=== PATIENT | female | born 1950 | race Caucasian/White ===

== ENCOUNTER → 2017-12-16 | Day surgery (SDC) | payer OTHER ==
--- NOTE | 2017-12-16 18:21 | OP ---
DATE OF OPERATION: 12/16/2017 PREOPERATIVE DIAGNOSIS: Right breast mass 2 o'clock, 1-cm from the nipple. POSTOPERATIVE DIAGNOSIS: Right breast mass 2 o'clock, 1-cm from the nipple. PROCEDURE: Right ultrasound-guided core biopsy with U-shaped clip placement. ANESTHESIA: Local. ATTENDING SURGEON: Shi Perez MD ESTIMATED BLOOD LOSS: Minimal. COMPLICATIONS: None. PROCEDURE: Patient was made aware of the risks and benefits of the procedure and consented. She was placed in the supine position and under sterile conditions with 1% lidocaine for local anesthesia a small radha was made in the skin. Using a 10-gauge suction biopsy device, via a superolateral approach under ultrasound guidance, multiple cores were obtained and submitted to pathology. Likewise, under ultrasound guidance, a U-shaped clip was placed into the biopsy region. Well tolerated by the patient. Steri-Strips and a sterile bandage was applied. We will contact her with the results. SHI PEREZ M.D. [id number]
--- NOTE | 2017-12-17 15:40 | PATH ---
Surgical Pathology Report Patient Name: ANTHONY ESQUIVEL [facility]. Rec. #: [id number] /Age/Gender: 1950 (Age: 67) / F Account: [id number] Location: [facility] Taken: 12/16/2017 Received: 12/16/2017 Reported: 12/17/2017 Physicians: Shi Perez M.D. Specimen(s) Received RIGHT BREAST 2:00 1 CM FN CORE BIOPSY Clinical History Nonpalpable lesion Ultrasound findings: Suspicious Final Diagnosis BREAST, RIGHT, 2:00, 1 CM FN, CORE BIOPSY: BENIGN BREAST TISSUE SHOWING SCLEROSING ADENOSIS AND MINUTE (~ 1 MM) INTRADUCTAL PAPILLOMA. (SEE NOTE) Note: Myoepithelial immunohistochemical markers (SMM-HC & p63, performed at [facility]) demonstrate the presence of myoepithelial cells in the lesion. This finding supports the diagnosis. Electronically Signed Samina Franco M.D. Gross Description Received in formalin labeled "right breast biopsy 2:00, 1 cmfn," is a 3.5 x 2.5 x 0.3 cm aggregate of multiple diaz-yellow, irregular to cylindrical portions of fibroadipose tissue admixed with blood clot. The formalin is filtered and the specimen is entirely submitted in 2 cassettes. Time to formalin fixation: < 1 minute Total formalin fixation time: Approximately 9 hours. 12/16/2017 [facility]16/2017
== END | disposition home or self-care (01) ==
LOC: FRADUS-SUR 12:35
PROVIDERS: ATTEND Surgery Surgical Oncology
PROC: 0HBT3ZX Excision of Right Breast, Percutaneous Approach, Diagnostic (ICD-10-PCS; principal; 2017-12-16)
DX: D24.1 Benign neoplasm of right breast (principal); N60.21 Fibroadenosis of right breast; N63.12 Unspecified lump in the right breast, upper inner quadrant
CPT/HCPCS: 19083; 88305-TC; 88341-TC; 88342-TC

== ENCOUNTER → 2021-12-27 | Day surgery (SDC) | payer OTHER | END | disposition home or self-care (01) | LOC: JRADUS-SUR 10:12 | PROVIDERS: ATTEND Physician Assistant | PROC: 07B53ZX Excision of Right Axillary Lymphatic, Percutaneous Approach, Diagnostic (ICD-10-PCS; principal; 2021-12-27) | DX: L04.2 Acute lymphadenitis of upper limb (principal); Z85.3 Personal history of malignant neoplasm of breast | CPT/HCPCS: 19083; 87899; 88305-TC; A4648 ==

== ENCOUNTER → 2022-06-21 | Day surgery (SDC) | payer OTHER | END | disposition home or self-care (01) | LOC: FMAMMOTONE 12:10 | PROVIDERS: ATTEND Physician Assistant | PROC: 0HBT3ZX Excision of Right Breast, Percutaneous Approach, Diagnostic (ICD-10-PCS; principal; 2022-06-21) | DX: Z53.8 Procedure and treatment not carried out for other reasons (principal); R92.1 Mammographic calcification found on diagnostic imaging of breast ==

== ENCOUNTER 2023-01-02 06:21 | Day surgery (SDC) | payer OTHER ==
[2022-12-27 12:31] VITALS: BMI 36.0
[2023-01-02] MEDS: PHENYLEPHRINE 2.5% OPTHALMIC DROP 2ML BOTTLE ONE ×3 (07:00→07:10)
[2023-01-02] MEDS: TROPICAMIDE 1% OPHTH SOLN 15 ML BOTTLE ONE ×3 (07:00→07:10)
[2023-01-02] MEDS: CIPROFLOXACIN 0.3% EYE DROPS 5 ML BOTTLE ONE ×3 (07:00→07:10)
[2023-01-02] MEDS: CYCLOPENTOLATE 2% OPHTH SOLN 2 ML BOTTLE ONE ×3 (07:00→07:10)
[2023-01-02] MEDS ORDERED: LIDOCAINE 1% P/F 10 MG/ML VIAL ONE (07:14)
[2023-01-02] MEDS ORDERED: PHENYLEPHRINE/KETOROLAC 4 ML VIAL IO ONE (07:14)
[2023-01-02] MEDS ORDERED: BSS (NA/CA/MG/K) BALANCED SALT SOLUTION OPHTH SOLN 15 ML BOTTLE ONE (07:14)
[2023-01-02] MEDS ORDERED: TETRACAINE 0.5% OPHTH SOLN 2 ML BOTTLE ONE (07:14)
[2023-01-02] MEDS ORDERED: EPINEPHrine/PF 1 MG/1 ML (1:1,000) AMPULE ONE (07:14)
[2023-01-02] MEDS ORDERED: CARBACHOL 0.01% INTRA-OCULAR 1.5 ML VIAL ONE (07:15)
[2023-01-02] MEDS ORDERED: NEO/POLYMYX B SULF/DEXAMETH OPHTHALMIC 5ML BOTTLE ONE (07:15)
[2023-01-02] MEDS ORDERED: MIDAZOLAM HCL 2 MG/2 ML SINGLE DOSE VIAL ONE (07:15)
[2023-01-02] MEDS ORDERED: TRYPAN BLUE 0.5 ML DISP.SYRIN ONE (07:38)
[2023-01-02] MEDS ORDERED: ACETYLCHOLINE 1:100 INTRA-OCUL 20 MG/2 ML KIT ONE (07:39)
[2023-01-02 08:46] VITALS: RESP 18; TEMP 97.4
[2023-01-02 09:01] VITALS: BP 142/80; PULSE 74
== END 2023-01-02 09:11 | disposition home or self-care (01) ==
LOC: FASU 06:21
PROVIDERS: ATTEND Ophthalmology
PROC: 08RK3JZ Replacement of Left Lens with Synthetic Substitute, Percutaneous Approach (ICD-10-PCS; principal; 2023-01-02 08:14)
DX: H26.8 Other specified cataract (principal)
CPT/HCPCS: 66984; V2632; 82962; J1097

== ENCOUNTER 2023-01-30 06:57 | Day surgery (SDC) | payer OTHER ==
[2023-01-28 09:19] VITALS: BMI 36.0
[2023-01-30] MEDS ORDERED: LIDOCAINE 1% P/F 10 MG/ML VIAL ONE (07:11)
[2023-01-30] MEDS ORDERED: EPINEPHrine/PF 1 MG/1 ML (1:1,000) AMPULE ONE (07:11)
[2023-01-30] MEDS ORDERED: LIDOCAINE HCL/PF 1% SDV 5ML VIAL ONE (07:11)
[2023-01-30] MEDS ORDERED: NEO/POLYMYX B SULF/DEXAMETH OPHTHALMIC 5ML BOTTLE ONE (07:11)
[2023-01-30] MEDS ORDERED: CARBACHOL 0.01% INTRA-OCULAR 1.5 ML VIAL ONE (07:11)
[2023-01-30] MEDS ORDERED: TETRACAINE 0.5% OPHTH SOLN 2 ML BOTTLE ONE (07:11)
[2023-01-30] MEDS ORDERED: BSS (NA/CA/MG/K) BALANCED SALT SOLUTION OPHTH SOLN 15 ML BOTTLE ONE (07:11)
[2023-01-30] MEDS: CYCLOPENTOLATE 2% OPHTH SOLN 2 ML BOTTLE ONE ×3 (07:30→07:40)
[2023-01-30] MEDS: CIPROFLOXACIN 0.3% EYE DROPS 5 ML BOTTLE ONE ×3 (07:30→07:41)
[2023-01-30] MEDS: TROPICAMIDE 1% OPHTH SOLN 15 ML BOTTLE ONE ×3 (07:30→07:40)
[2023-01-30] MEDS: PHENYLEPHRINE 2.5% OPTHALMIC DROP 2ML BOTTLE ONE ×3 (07:30→07:40)
[2023-01-30 07:32] VITALS: RESP 18
[2023-01-30] MEDS ORDERED: MIDAZOLAM HCL 2 MG/2 ML SINGLE DOSE VIAL ONE (09:00)
[2023-01-30 09:51] VITALS: TEMP 97.8
[2023-01-30 09:52] VITALS: BP 129/71; PULSE 75
== END 2023-01-30 10:10 | disposition home or self-care (01) ==
LOC: FASU 06:57
PROVIDERS: ATTEND Ophthalmology
PROC: 08RJ3JZ Replacement of Right Lens with Synthetic Substitute, Percutaneous Approach (ICD-10-PCS; principal; 2023-01-30 09:08)
DX: H26.8 Other specified cataract (principal)
CPT/HCPCS: 66984; V2632; 82962